=== PATIENT | female | born 1995 | race Caucasian/White ===

== ENCOUNTER → 2019-07-03 14:28 | Outpatient (CLI) | payer OTHER, SELFPAY ==
[2019-07-04 15:28] LABS: Strep Grp B PCR NEG for Grp B Strep
== END ==
PROVIDERS: Visit Provider Obstetrics & Gynecology
DX: Z34.03 Encounter for supervision of normal first pregnancy, third trimester (principal); Z3A.36 36 weeks gestation of pregnancy
CPT/HCPCS: 87653

== ENCOUNTER → 2019-07-11 10:29 | Outpatient (CLI) | payer OTHER, SELFPAY | PROVIDERS: Visit Provider Obstetrics & Gynecology | DX: Z34.03 Encounter for supervision of normal first pregnancy, third trimester (principal); R82.90 Unspecified abnormal findings in urine; Z3A.37 37 weeks gestation of pregnancy | CPT/HCPCS: 87086 ==

== ENCOUNTER 2019-07-11 10:53 | Outpatient (CLI) | payer OTHER, SELFPAY | END 2019-07-11 11:28 | disposition home or self-care (01) | LOC: LABOR 14:56 → OB 07-13 08:59 | PROVIDERS: Referring Provider Obstetrics & Gynecology; Visit Provider Obstetrics & Gynecology | DX: O36.8130 Decreased fetal movements, third trimester, not applicable or unspecified (principal); Z3A.37 37 weeks gestation of pregnancy; R82.90 Unspecified abnormal findings in urine | CPT/HCPCS: 59025; 87086; G0378; G0379 ==

== ENCOUNTER 2019-07-28 13:49 | Inpatient (IN) | payer OTHER, SELFPAY ==
[2019-07-28 15:25] LABS: Add Manual Diff / Slide Review NO; Basophils Absolute Auto 100 /uL (0-100); Basophils Percent Auto 0.3 % (0-2); Eosinophils Absolute Auto 100 /uL (0-450); Eosinophils Percent Auto 0.6 % (2-4); Hematocrit 37.7 % (36-46); Hemoglobin 12.7 g/dL (12.0-16.0); Lymphocytes Absolute Auto 2000 /uL (1100-4500); Lymphocytes Percent Auto 12.3 % (25-40); Mean Corpuscular HGB Conc 33.7 % (30-36); Mean Corpuscular Hemoglobin 30.6 PG (26-34); Mean Corpuscular Volume 90.7 fL (80-100); Monocytes Absolute Auto 1000 /uL (0-900); Monocytes Percent Auto 6.3 % (3-14); Neutrophils Absolute Auto 13100 /uL (1500-7000); Neutrophils Percent Auto 80.5 % (50-75); Platelet Count 270 X10^3/uL (150-400); Red Blood Cell Count 4.16 X10^6/uL (4.0-5.2); Red Cell Distribution Width 13.2 % (11.6-14.8); White Blood Cell Count 16.3 X10^3/uL (4.5-11.0)
[2019-07-28 15:51] VITALS: BP 112/69
--- NOTE | 2019-07-28 15:58 | P.HPOB_ITS ---
OB HPI Date/Time Date of admission: 07/28/19 Date Patient Seen: 07/28/19 Time Patient Seen: 14:20 History of Present Condition Chief complaint: maternity : 1 Narrative: Giana Luna is a 23 year old G1 female with the DANIEL 07/30/2019 by LMP and consistent with an 11 week ultrasound, who presents at 39 weeks reporting uncomfortable contractions. Contractions started at approximately 8:30 a.m., every 6-7 minutes, became more frequent and more uncomfortable, now every 2-3 minutes. has been uncomplicated. She did have an abnormal 1 hour Glucola, but normal 3 hour GTT (only 1 abnormal value). She had transferred from [facility] at 34 weeks. Denies leakage of fluid or vaginal bleeding. She reports good movement. History of Present care: good care Dating criteria: LMP confirmed by 1st trimester US Ultrasounds: normal 1st trimester US and normal mid trimester US Obstetrical complications: none Medical complications: none Preadmission Labs Blood type: A (+) positive -: Antibody screen: negative, GBS status: negative, HBsAG: negative, HIV: negative and RPR/VDLR: negative -: Rubella: immune and Varicella: immune PAP: Normal Quad screen: Normal 3 hr GTT: 1 hr (178), 2 hr (147) and 3 hr (140) Fasting blood glucose: 79 Evaluation Evaluation Baseline heart rate: 135 Variability: Moderate (11-25) monitor accelerations: Present monitor decelerations: Absent Contraction Frequency (minutes): 2 Uterine Contraction Intensity: Moderate Category of Tracing: I Cervical dilation (cm): 4 Cervical effacement (%): 90 station: -2 Laboratory results: Laboratory Tests 07/28/19 15:10 WBC 16.3 H RBC 4.16 Hgb 12.7 Hct 37.7 MCV 90.7 MCH 30.6 MCHC 33.7 RDW 13.2 Plt Count 270 Neut % (Auto) 80.5 H Lymph % (Auto) 12.3 L [place] % (Auto) 6.3 Eos % (Auto) 0.6 L Baso % (Auto) 0.3 Neut # (Auto) 97143 H Lymph # (Auto) 2000 [place] # (Auto) 1000 H Eos # (Auto) 100 Baso # (Auto) 100 PFSH Medical History Acne (Acute ~2010) Surgical History Anesthesia (Resolved) Donald teeth removed (Acute ~2014) Family History (Updated 06/29/19 @ 21:33 by Kassi Vernon) Mother Breast cancer Family/Other Breast cancer Grandfather No problems noted. Grandmother Cancer Father No known health problems Grandmother Lung cancer Grandfather Hypertension Family/Other One of triplets Social History marital status: education level: high school occupational status: employed Smoking Status: Never smoker second hand exposure: No alcohol intake: former (pre-) substance use type: does not use Meds Home Medications and Allergies Home Medications Medication Instructions Recorded Confirmed Type docosahexaenoic acid 200 mg capsule mg PO 06/19/19 07/24/19 History prenat.vits,sharon,[id number] 1 tab PO DAILY 06/19/19 07/28/19 History pyridoxine (vitamin B6) 25 mg 25 mg PO DAILY 06/19/19 07/28/19 History tablet Allergies Allergy/AdvReac Type Severity Reaction Status Date / Time No Known Drug Allergies Allergy Verified 07/24/19 12:21 Review of Systems Review of Systems Narrative: Denies leakage of fluid or vaginal bleeding. Exam Vital Signs (past 8 hours): - Afebrile Pulse 115 07/28/19 15:51 Blood Pressure 112/69 Objective Labs Result Diagrams: 07/28/19 15:10 Labs: Laboratory Results - last 24 hr 07/28/19 15:10 WBC 16.3 H RBC 4.16 Hgb 12.7 Hct 37.7 MCV 90.7 MCH 30.6 MCHC 33.7 RDW 13.2 Plt Count 270 Neut % (Auto) 80.5 H Lymph % (Auto) 12.3 L [place] % (Auto) 6.3 Eos % (Auto) 0.6 L Baso % (Auto) 0.3 Neut # (Auto) 21556 H Lymph # (Auto) 2000 [place] # (Auto) 1000 H Eos # (Auto) 100 Baso # (Auto) 100 Assessment and Plan Assessment and Plan Assessment and Plan narrative: 39 weeks, labor, GBS negative Plan: Admit. Routine CBC and type and screen ordered. May ambulate. Does not feel she needs any medication for the discomfort at this time. Expecting care.
--- NOTE | 2019-07-28 18:57 | P.PN_ITS ---
Subjective Subjective Date Patient Seen: 07/28/19 Time Patient Seen: 18:00 Interval history: Patient feeling that contractions are getting somewhat stronger. Coping well however with ambulating. Does not desire anything for pain. Exam Vital Signs (past 8 hours): - 07/28/19 15:51 Blood Pressure 112/69 Objective Labs Result Diagrams: 07/28/19 15:10 Labs: Laboratory Results - last 24 hr 07/28/19 07/28/19 15:10 15:10 WBC 16.3 H RBC 4.16 Hgb 12.7 Hct 37.7 MCV 90.7 MCH 30.6 MCHC 33.7 RDW 13.2 Plt Count 270 Neut % (Auto) 80.5 H Lymph % (Auto) 12.3 L [place] % (Auto) 6.3 Eos % (Auto) 0.6 L Baso % (Auto) 0.3 Neut # (Auto) 05886 H Lymph # (Auto) 2000 [place] # (Auto) 1000 H Eos # (Auto) 100 Baso # (Auto) 100 Blood Type A Positive Antibody Screen Negative
--- NOTE | 2019-07-28 19:02 | PM.OBPNLAB ---
Date/Time Date Patient Seen: 07/28/19 Time Patient Seen: 18:00 Pain Control Pain control: tolerating well Comments: She reports contractions becoming somewhat more uncomfortable, but more tolerable with ambulating. Does not feel she needs anything for analgesia. Pelvic Exam Dilation (cm): 5 Effacement (%): 90 station: -2 Amniotic membrane status: Intact Contractions Contractions on admission: regular Contraction frequency (min): 3 Contraction pattern: Regular Contraction intensity: Moderate Status status: Category l Heart Rate Baseline: 130 Monitor Accelerations: Present Monitor Decelerations: Absent Monitor Variability: Moderate Assessment and Plan Assessment: other (early labor) Plan: continuous present management Comments: Discussed could AROM to augment at any time, but discussed it would make the contractions more intense. She prefers to hold off on augmentation at this time. Will recheck cervix in a few hours.
[2019-07-28] MEDS: fentaNYL 100 MCG/2 ML INJ 50 MCG IV ×2 (21:35→23:25)
[2019-07-28] MEDS: LACTATED RINGERS 1,000 ML 100 ML IV (23:10)
[2019-07-28] MEDS: FENT 2MCG/ML BUPIV 0.125% EPI 200 MCG/100 ML PLAST..BAG 10 MCG EPIDURAL (23:25)
--- NOTE | 2019-07-28 23:51 | PM.OBPNLAB ---
Date/Time Date Patient Seen: 07/29/19 Time Patient Seen: 00:30 Pain Control Pain control: epidural Comments: Patient had received fentanyl 2+ hours ago with some relief for awhile. Now just received an epidural, comfortable s/p epidural Pelvic Exam Dilation (cm): 6 Effacement (%): 90 station: -2 Amniotic membrane status: Intact Contractions Contractions on admission: regular Contraction frequency (min): 3 Contraction pattern: Regular Contraction intensity: Strong/Firm Status status: Category l Monitor Accelerations: Present Monitor Decelerations: Absent Assessment and Plan Assessment: active labor Comments: progressing, expectant care
[2019-07-29] MEDS: LACTATED RINGERS 1,000 ML 100 ML IV (01:53)
[2019-07-29] MEDS: FENT 2MCG/ML BUPIV 0.125% EPI 200 MCG/100 ML PLAST..BAG 10 MCG EPIDURAL (06:45)
--- NOTE | 2019-07-29 09:46 | P.PCNOB_ITS ---
Labor & Delivery Delivery date: 07/29/19 Intrapartal events: None Cervical ripening method: none Induction method: none Delivery monitor: external FHT Route of delivery: Episiotomy description: None L&D Laceration Description: Perineal - 2nd Degree Delivery repair: vicryl and chromic Estimated blood loss (mL): 400 Anesthesia type: Epidural Complications: none Narrative: Giana had spontaneous rupture membranes at approximately 3:30 a.m. she progressed to completely dilated at 5:45 a.m.. She became very uncomfortable a short time later, feeling uterine discomfort and not just pressure and received an epidural bolus. She began pushing at 0720, pushed just over 1 hour and had a spontaneous vaginal delivery over an intact perineum from the OA position. No nuchal cord was present. Anterior followed by posterior shoulder were delivered without difficulty with the patient pushing, followed by the remainder of the body. A baby boy was delivered at 0826am and placed on the maternal abdomen. He cried spontaneously and appeared vigorous. After 1 minute, cord was clamped and then cut by the father. Placenta delivered spontaneously approximately 18 minutes later, at 8:44 a.m. She had normal bleeding after delivery of the placenta. She was given routine Pitocin IV and normal lochia continued during the repair. On inspection she had a second-degree perineal laceration which was repaired in the usual fashion with 3-0 chromic and 3-0 Vicryl for the deeper stitches. She did well and was left to recover in good condition. Weight of the baby is pending. Baby 1: Infant gender: Male Presentation: vertex position: Right Occiput Anterior Placenta delivery description: Spontaneous and Normal Configuration cord vessel description: 3 Vessels score (1 min): 8 (-2 for color) score (5 min): 9 (-1 color) Plan for aftercare: Left to recover in stable condition
[2019-07-29] MEDS: IBUPROFEN 600 MG TABLET PO (22:03)
[2019-07-30] MEDS: LANOLIN OINT 7 GM 1 APPLIC TOP (00:41)
[2019-07-30] MEDS: DERMOPLAST SPRAY 20% 60 ML 1 SPRAY TOP (00:41)
[2019-07-30 04:54] VITALS: BP 112/69; PULSE 100; RESP 18; TEMP 36.6
[2019-07-30] MEDS: IBUPROFEN 600 MG TABLET PO (05:26)
[2019-07-30 05:33] LABS: Hematocrit 32.7 % (36-46); Hemoglobin 11.2 g/dL (12.0-16.0)
[2019-07-30] MEDS: DOCUSATE 100 MG CAPSULE PO (08:46)
[2019-07-30] MEDS: PRENATAL VIT,CALC/IRON/FOLIC 1 TABLET 1 TAB PO (08:46)
--- NOTE | 2019-07-30 09:57 | PM.DS.1 ---
History of Present Illness History of Present Illness Date Patient Seen: 07/30/19 Time Patient Seen: 10:17 Chief complaint: maternity Narrative: 23-year-old G1 female presented at 39 weeks EGA, reporting uncomfortable contractions, in active labor. Discharge Providers Provider Date of admission: 07/28/19 13:49 Discharge Date: 07/30/19 Consults: 07/28/19 15:02 Consult to Anesthesiology Urgent Comment: Consulting Provider: Anesthesiologist Reason for consultation: labor analgesia Has provider been notified: No 07/30/19 10:18 Consult to Training Program Assistant Routine Comment: Discharge provider: Nan Huffman MD Summary Hospital Course Hospital Course: She progressed in spontaneous labor. She had spontaneous rupture membranes and progressed to completely dilated. She had a spontaneous vaginal delivery of a viable male weighing 6 lb 8 oz with Apgars of 8 and 9. Placenta delivered spontaneously. She had repair of a second-degree perineal laceration. She has had a normal course. Lochia is normal. She is breast-feeding without problems. Both she and the baby is doing well and she desires discharge home today on day 1. Status at Discharge Cognitive/behavioral status at discharge: oriented Functional status at discharge: independent ambulation Overall status at discharge: other (Back to baseline, except expected soreness and perineal area, relieved enough with ibuprofen. ) Time Spent with Patient Time spent: Less than 30 minutes Time spent discussing smoking cessation with patient: 3 to 10 minutes Exam Vital Signs (past 8 hours): Afebrile, BP 11/76 Pulse 97 RR 16 Narrative Exam Narrative: General: Well-appearing female Abdomen: Soft, nontender, nondistended. Fundus U -1, nontender Extremities: No edema Objective Labs Result Diagrams: 07/30/19 05:20 Labs: Laboratory Results - last 24 hr 07/30/19 05:20 Hgb 11.2 L Hct 32.7 L Discharge Plan Discharge Plan Patient Disposition: Home Discharge comment: Follow-up for a Six week visit with me. Discharge orders & Medications Prescriptions: New acetaminophen 325 mg Tablet 650 mg PO Q6HR PRN (Reason: Pain, Mild (1-3)) Qty: 20 RF: 0 ibuprofen 600 mg Tablet 600 mg PO Q6HR PRN (Reason: Pain, Mild (1-3)) Qty: 20 RF: 0 Continued prenat.vits,sharon,[id number] Tablet 1 tab PO DAILY RF: 0 Follow up/Referrals: Nan Huffman MD [Physician] - Discharge Health Status Multidrug resistant organism: No MDRO Diet/Activity/Treatments Diet: Diet as Tolerated Activity: Nothing in the vagina, including no tampons and no intercourse for 6 weeks Skin/Wound/Dressing Care Report to your healthcare provider any signs of infection, such as:: chills, fever and increased pain Quality VTE Deep Vein Thrombosis/Pulmonary Embolism Present on Admission: No
== END 2019-07-30 13:40 | disposition home or self-care (01) | DRG 807 ==
PROVIDERS: Admitting Provider Obstetrics & Gynecology; Referring Provider Obstetrics & Gynecology; Visit Provider Obstetrics & Gynecology
DX: O70.1 Second degree perineal laceration during delivery (principal); Z37.0 Single live birth; Z3A.39 39 weeks gestation of pregnancy
CPT/HCPCS: 01967; 36415; 59025; 59050; 59410; 85014; 85018; 85025; 86850; 86900; 86901; G0379; J3010